=== PATIENT | male | born 1985 | race Caucasian/White ===

== ENCOUNTER 2017-02-05 09:11 | Emergency (ER) | payer BC ==
[2017-02-05 10:22] LABS: HEMOGLOBIN 16.5 gm/dl (14.0-17.5); RED BLOOD COUNT 5.48 M/UL (4.20-5.50); WHITE BLOOD COUNT 6.6 K/UL (4.5-11.0)
[2017-02-05 10:56] LABS: BUN/CREATININE RATIO 11 (0-10)
== END 2017-02-05 12:00 | disposition home or self-care (01) ==
LOC: ER1 09:11
PROVIDERS: Physician Assistant
DX: R07.89 Other chest pain (principal); E87.6 Hypokalemia; F41.9 Anxiety disorder, unspecified
CPT/HCPCS: 36415; 71010; 80053; 82550; 82553; 83874; 84484; 85025; 93005; 99285